=== PATIENT | female | born 1995 | race Asian ===

== ENCOUNTER 2016-11-02 13:55 | Emergency (ER) | payer BC, OTHER ==
[~2016-11-02] VITALS: Ht 162.6 cm; Wt 62.5 kg
[~2016-11-02 13:55] MED LIST: BACL10TA PO; Bisacodyl PO; DOCU-144 PO; Hydrocodone Bit/Acetaminophen PO; IBUP800T25 PO; MED4DP PO; PANT40TA3 PO; SERT100T PO
[2016-11-02 13:57] VITALS: Ht 162.6 cm; Wt 62.5 kg
[2016-11-02] MEDS ORDERED: ACETAMINOPHEN 500 MG TAB PO STA (14:39)
[2016-11-02] MEDS ORDERED: OSLT75C PO (14:51)
[2016-11-02] MEDS ORDERED: UDROBDM PO (14:51)
[2016-11-02] MEDS ORDERED: ACET500C5 PO (14:51)
[2016-11-02] MEDS ORDERED: IBUP-1542 PO (14:51)
--- NOTE | 2016-11-02 14:58 | ERD ---
ER Documentation Chief Complaint Date/Time DATE: 11/02/16 TIME: 14:55 Chief Complaint FEVER, ST , HEADCAHE HPI This is a 20-year-old female who presents to the emergency department today with her mother complaining of headache, sore throat, cough, body aches for the past couple of days. She has taken some sort of liquid medication however she is unsure what it is. Denies taking any Tylenol or Motrin. States that people at work have been sick. Denies any vomiting or diarrhea. States she is hungry. ROS All systems reviewed and are negative except as per history of present illness. Medications Home Meds Active Scripts Guaifenesin-Dextromethorphan* (Robitussin* DM) 100MG/10MG/5ML Syrup, 10 ML PO Q4H Y for COUGH for 5 Days, ML Prov:SAMY AVALOS PA-C 11/02/16 Ibuprofen* (Motrin*) 600 Mg Tab, 600 MG PO Q6, #30 TAB Prov:SAMY AVALOS PA-C 11/02/16 Acetaminophen* (Tylophen*) 500 Mg Capsule, 1 CAP PO Q6H Y for PAIN AND OR ELEVATED TEMP, #30 CAP Prov:SAMY AVALOS PA-C 11/02/16 Oseltamivir Phosphate* (Tamiflu*) 75 Mg Capsule, 75 MG PO BID for 5 Days, CAP Prov:SAMY AVALOS PA-C 11/02/16 Pantoprazole* (Protonix*) 40 Mg Tablet.dr, 40 MG PO DAILY, #30 TAB Prov:GABBY VOGEL MD 02/01/15 Methylprednisolone* (Medrol* DOSE PACK) 4 Mg/Dose-Pack Tab.ds.pk, 4 MG PO . DIRECTED, #21 PACKET Prov:GABBY VOGEL MD 02/01/15 Ibuprofen* (Ibuprofen*) 800 Mg Tab, 800 MG PO TID, #60 TAB Prov:GABBY VOGEL MD 02/01/15 [Hydrocodone Bit/Acetaminophen] 1 TAB TAB No Conflict Check, 1 TAB PO Q6H Y for MODERATE PAIN LEVEL 4-6, #30 TAB Prov:GABBY VOGEL MD 02/01/15 Docusate Sodium* (Colace*) 100 Mg Cap, 100 MG PO Q12H Y for CONSTIPATION, #60 TAB Prov:GABBY VOGEL MD 02/01/15 [Bisacodyl] 5 MG TABEC No Conflict Check, 5 MG PO DAILY Y for CONSTIPATION, #30 TAB Prov:GABBY VOGEL MD 02/01/15 Baclofen* (Lioresal*) 10 Mg Tab, 10 MG PO TID, #60 TAB Prov:GABBY VOGEL MD 02/01/15 Reported Medications Sertraline Hcl* (Zoloft*) 100 Mg Tablet, 100 MG PO DAILY, TAB 01/30/15 Allergies Allergies: Coded Allergies: No Known Allergy (Unverified , 01/30/15) PMhx/Soc History of Surgery: Yes (TONSILLECTOMY) Anesthesia Reaction: No Hx Neurological Disorder: No Hx Respiratory Disorders: No Hx Cardiac Disorders: No Hx Psychiatric Problems: No Hx Miscellaneous Medical Probl: No Hx Alcohol Use: No Hx Substance Use: No Hx Tobacco Use: No Physical Exam Vitals Vital Signs Date Time Temp Pulse Resp B/P Pulse Ox O2 Delivery O2 Flow Rate FiO2 11/02/16 13:57 101.9 97 18 120/58 100 Physical Exam Const: Nontoxic-appearing Head: Atraumatic Eyes: Normal Conjunctiva ENT: Ears TMs normal. Nose no drainage. Throat no erythema no exudate Neck: Full range of motion..~ No meningismus. Resp: Clear to auscultation bilaterally. No absent breath sounds. No wheezing. Cardio: Regular rate and rhythm, no murmurs Abd: Soft, non tender, non distended. Normal bowel sounds Skin: No petechiae or rashes Back: No midline or flank tenderness Neur: Awake and alert Psych: Normal Mood and Affect Results 24 hrs Current Medications Medications (Trade) Dose Ordered Sig/Pattie Route PRN Reason Start Time Stop Time Status Last Admin Dose Admin Ibuprofen (Motrin) 600 mg ONCE ONCE PO 11/02/16 15:00 11/02/16 15:01 11/02/16 14:48 Acetaminophen (Tylenol Tab) 500 mg ONCE STAT PO 11/02/16 14:39 11/02/16 14:40 DC 11/02/16 14:48 Procedures/MDM This is a 20-year-old female who presents to the emergency department today with flulike symptoms. Patient did have a temperature of 101.9 here in the emergency department. She is not tachycardic and her oxygen saturations 100%. Do not feel that she requires a chest x-ray or further workup at this time. I have low suspicion for strep pharyngitis, peritonsillar abscess, retropharyngeal abscess, otitis media, PNA, sinusitis, abscess, meningitis, sepsis, or other acute infectious bacterial process. Patient was given Tylenol and Motrin here in the emergency department. She will be discharged home with Tamiflu, Tylenol, Motrin and Robitussin. I have explained to the patient that the Tamiflu may only decrease her symptoms by 1 day. Patient understood. She was instructed to drink plenty of clear fluids and stay well-hydrated and get plenty of rest. At this time the patient is stable for discharge and outpatient management. They should follow up with their PCP in the next 1-2. They may return to the emergency department sooner if symptoms persist or worsen. Patient and mother understood and agreed with the plan. Departure Diagnosis: Primary Impression: Influenza-like symptoms Condition: Fair Patient Instructions: Influenza (Adult) Additional Instructions: Call your primary care doctor TOMORROW for an appointment during the next 1-2 days.See the doctor sooner or return here if your condition worsens before your appointment time. Take Tamiflu for flulike symptoms Take Tylenol every 4 hours or Motrin every 6 hours for pain, fever, headache, body ache, sore throat Take Robitussin for cough SAMY AVALOS PA-C Nov 02, 2016 14:58
[2016-11-02] MEDS ORDERED: IBUPROFEN 600 MG TAB PO ONE (15:00)
== END 2016-11-02 15:16 | disposition home or self-care (01) ==
LOC: FTE 13:55
DX: R51 Headache (principal); J02.9 Acute pharyngitis, unspecified; R05 Cough
CPT/HCPCS: 99283; Z7610